=== PATIENT | female | born 1985 | race Two or more races ===

== ENCOUNTER 2019-08-19 23:11 | Inpatient (IN) | payer BC ==
[~2019-08-19] VITALS: Ht 160 cm; Wt 80.7 kg
[2019-08-20] MEDS ORDERED: BUTORPHANOL TARTRATE 2 MG/ML VIAL IV PRN (01:00)
[2019-08-20] MEDS ORDERED: DEXT 5%/LR + PITOCIN 20UNITS/L 1,000 ML IV SCH ×2 (01:00→17:13)
[2019-08-20 01:24] LABS: BASOPHILS % 0.5 % (0.0-2.0); HEMATOCRIT. 37.9 % (36.0-48.0); HEMOGLOBIN. 12.8 g/dL (12.0-16.0); LYMPHOCYTES % 17.4 % (20.0-50.0); MEAN CORPUSCULAR HEMOGLOBIN 27.9 pg (28.0-32.0); MEAN CORPUSCULAR VOLUME 82.8 fL (81.0-99.0); MEAN PLATELET VOLUME 10.3 fl (7.4-10.4); MONOCYTES % 8.6 % (2.0-8.0); NEUTROPHILS % 71.5 % (40.0-76.0); PLATELET 179 x1000/uL (130-400); RED BLOOD CELL COUNT 4.58 mill/uL (4.2-5.4); RED CELL DISTRIBUTION WIDTH 13.9 % (11.6-14.6)
[2019-08-20 01:47] LABS: *AMPHETAMINES SCREEN URINE NEGATIVE (NEGATIVE); *BARBITURATES SCREEN URINE NEGATIVE (NEGATIVE); *BENZODIAZEPINES SCREEN URINE NEGATIVE (NEGATIVE); *COCAINE SCREEN URINE NEGATIVE (NEGATIVE); METHADONE URINE SCREEN NEGATIVE (NEGATIVE); OPIATES URINE SCREEN NEGATIVE (NEGATIVE)
[2019-08-20 01:48] LABS: CANNABINOID URINE SCREEN NEGATIVE (NEGATIVE); PHENCYCLIDINE URINE SCREEN NEGATIVE (NEGATIVE)
[2019-08-20] MEDS ORDERED: LACTATED RINGERS 1,000 ML IV SCH ×2 (02:00→10:00)
[2019-08-20] MEDS ORDERED: PENICILLIN G POTASSIUM 5 MMU in DEXT 5% WATER 100 ML IV SCH (02:00)
[2019-08-20 02:05] LABS: INR 0.9; PARTIAL THROMBOPLASTIN TIME 25.2 sec (23.4-31.0)
[2019-08-20 04:47] LABS: HEPATITIS B SURFACE ANTIGEN NEGATIVE
[2019-08-20] MEDS ORDERED: ROPIVACAINE HCL/PF EPIDURAL 200 ML EPI ONE (06:00)
[2019-08-20] MEDS ORDERED: PENICILLIN G POTASSIUM 2.5 MMU in DEXTROSE 5% WATER 50 ML IV SCH (06:00)
[2019-08-20] MEDS ORDERED: MINERAL OIL 30ML BOTTLE PO PRN (14:54)
[2019-08-20 16:50] LABS: BG BASE EXCESS -18.1 mmol/L (-2.0-2.0); BG CARBOXYHEMOGLOBIN 0.3 % (0.5-1.5); BG DEOXYHEMOGLOBIN 66.9 % (0.0-5.0); BG FRACTION INSPIRED OXYGEN 21; BG HCO3 ACT 15.2 mmol/L (22.0-26.0); BG METHEMOGLOBIN 1.4 % (0.0-1.5); BG OXYGEN SATURATION 31.9 % (92.0-98.5); BG OXYHEMOGLOBIN 31.4 % (94.0-97.0); BG PCO2 69.4 mmHg (35.0-45.0); BG PH 6.957 (7.350-7.450); BG PO2 < 30.3 mmHg (75.0-100.0); BG SAMPLE SITE CORD; BG TOTAL HEMOGLOBIN 16.7 g/dL (12.0-18.0); BG VENT MODE ROOM AIR
[2019-08-20] MEDS ORDERED: RHO(D) IMMUNE GLOBULIN 300 MCG/SYR IM PRN (17:15)
[2019-08-20] MEDS ORDERED: IBUPROFEN 800MG TABLET PO PRN (17:15)
[2019-08-20] MEDS ORDERED: GLYCERIN/WITCH HAZEL LEAF MEDICATED PAD TOP PRN (17:15)
[2019-08-20] MEDS ORDERED: BENZOCAINE/LANOLIN/ALOE VERA SPRAY TOP PRN (17:15)
[2019-08-20] MEDS ORDERED: HEMORRHOIDAL SUPP PR PRN (17:15)
[2019-08-20] MEDS ORDERED: IBUPROFEN 400MG TABLET PO PRN (17:15)
[2019-08-20] MEDS ORDERED: OXYCODONE HCL/ACETAMINOPHEN 5/325MG TABLET PO PRN ×2 (17:15)
[2019-08-20] MEDS ORDERED: BISACODYL 10MG SUPP PR PRN (17:15)
[2019-08-20] MEDS ORDERED: METHYLERGONOVINE MALEATE 0.2 MG/ML IM PRN (17:15)
[2019-08-20] MEDS ORDERED: LANOLIN OINT 7GM TUBE TOP PRN (17:15)
[2019-08-20] MEDS ORDERED: DIPHENHYDRAMINE 25MG CAPSULE PO PRN (17:15)
[2019-08-20 20:00] VITALS: BP 119/77
[2019-08-20] MEDS: DOCUSATE SODIUM 100MG CAPSULE PO SCH (20:35)
[2019-08-20] MEDS: SIMETHICONE 80MG TABLET CHEW PO SCH (20:36)
[2019-08-20 22:00] VITALS: BP 117/75
[2019-08-21 04:35] VITALS: BP 115/71
[2019-08-21] MEDS: IBUPROFEN 600MG TABLET PO SCH (04:35)
[2019-08-21 07:45] VITALS: BP 106/64
[2019-08-21 08:05] LABS: BASOPHILS % 0.2 % (0.0-2.0); EOSINOPHILS % 0.9 % (0.0-5.0); HEMATOCRIT. 28.3 % (36.0-48.0); HEMOGLOBIN. 9.5 g/dL (12.0-16.0); MEAN CORPUSCULAR HEMOGLOBIN 27.7 pg (28.0-32.0); MEAN PLATELET VOLUME 10.4 fl (7.4-10.4); MONOCYTES % 6.8 % (2.0-8.0); NEUTROPHILS % 81.1 % (40.0-76.0); PLATELET 157 x1000/uL (130-400); RED BLOOD CELL COUNT 3.41 mill/uL (4.2-5.4)
[2019-08-21] MEDS: PRENATAL VIT/FE FUMARATE/FA TABLET PO SCH (09:08)
[2019-08-21] MEDS: SIMETHICONE 80MG TABLET CHEW PO SCH ×4 (09:08→21:47)
[2019-08-21 16:16] VITALS: BP 101/57
[2019-08-21 19:05] VITALS: BP 100/58
[2019-08-21] MEDS: DOCUSATE SODIUM 100MG CAPSULE PO SCH (21:46)
[2019-08-21 23:30] VITALS: BP 102/59
[2019-08-22 09:15] VITALS: BP 102/59
[2019-08-22] MEDS: PRENATAL VIT/FE FUMARATE/FA TABLET PO SCH (09:15)
[2019-08-22] MEDS: IBUPROFEN 600MG TABLET PO SCH (09:15)
[2019-08-22] MEDS: SIMETHICONE 80MG TABLET CHEW PO SCH (09:16)
== END 2019-08-22 12:10 | disposition home or self-care (01) | DRG 807 ==
LOC: 8 EST LDRP 23:11 → OBSVTOIN 23:11 → 8 EST LDRP 08-20 00:13 → 8EST 08-20 18:39
PROVIDERS: ADMIT Specialist; ATTEND Obstetrics & Gynecology
PROC: 0HQ9XZZ Repair Perineum Skin, External Approach (ICD-10-PCS; principal; 2019-08-20)
PROC: 10E0XZZ Delivery of Products of Conception, External Approach (ICD-10-PCS; 2019-08-20)
PROC: 00HU33Z Insertion of Infusion Device into Spinal Canal, Percutaneous Approach (ICD-10-PCS; 2019-08-20)
PROC: 3E0R3BZ Introduction of Anesthetic Agent into Spinal Canal, Percutaneous Approach (ICD-10-PCS; 2019-08-20)
DX: O42.92 Full-term premature rupture of membranes, unspecified as to length of time between rupture and onset of labor (principal); Z37.0 Single live birth; Z3A.38 38 weeks gestation of pregnancy; O70.0 First degree perineal laceration during delivery; O99.344 Other mental disorders complicating childbirth; F31.9 Bipolar disorder, unspecified
CPT/HCPCS: 36415; 36600; 76815; 80305; 82375; 82805; 85025; 86592; 86703; 86762; 86850; 86900; 87340; 99281; G0378; J2540; J2590; J2795; J7060; J7120; A4315